=== PATIENT | female | born 1955 | race Caucasian/White ===

== ENCOUNTER 2023-12-10 19:34 | Outpatient (CLI) | payer MEDICARE, OTHER, SELFPAY ==
--- NOTE | 2023-12-17 09:28 | W.PM.SLEEP ---
Sleep Study Details Details Interpreting Provider: Eliane Date of Sleep Study: 12/10/23 Sleep Study Details: STUDY TYPE:? Home unattended ? BMI:? Not recorded ORDERING PROVIDER:Godwin Del Rio INDICATION:? Concerns about sleep apnea ? SLEEP SUMMARY:? 596.6 minutes monitored RESPIRATORY SUMMARY:? AHI per CMS guideline 7.1, utilizing rule 3 1 AHI is 8 Supine AHI 18.4 Nonsupine AHI is 3.2 low oxygen 76 35.6% of study oxygen less than 90% Snoring 50.4% PERIODIC LIMB MOVEMENTS OF SLEEP:? Not recorded CARDIAC:? Range 46-91, mean 62.2 IMPRESSION:? Mild obstructive sleep apnea with supine position dependency. Significant hypo oxygenation noted during study RECOMMENDATION: Treatment options would include a trial of positional therapy, dental appliance, AutoSet CPAP. Once effective treatment is established overnight oximetry study should be performed.
== END 2023-12-10 19:35 | disposition home or self-care (01) ==
PROVIDERS: Visit Provider Otolaryngology
DX: G47.33 Obstructive sleep apnea (adult) (pediatric) (principal)
CPT/HCPCS: 95806